=== PATIENT | female | born 1970 | race Caucasian/White ===

== ENCOUNTER → 2017-05-13 | Outpatient (CLI) | payer BC, OTHER | LOC: FCPNEURO 11:17 | PROVIDERS: ATTEND Student in an Organized Health Care Education/Training Program | DX: G47.33 Obstructive sleep apnea (adult) (pediatric) (principal) ==

== ENCOUNTER 2018-01-15 18:20 | Inpatient (IN) | payer BC, OTHER ==
[2018-01-15] MEDS ORDERED: NS 500 ML IV ONE (18:48)
--- NOTE | 2018-01-15 18:51 | CPEKG ---
Heart Rate: 92 RR Interval: 652 P-R Interval: 152 QRSD Interval: 82 QT Interval: 364 QTC Interval: 451 P [place]: 72 QRS [place]: 51 T Wave [place]: 6 EKG Severity - NORMAL ECG - EKG Impression: SINUS RHYTHM Electronically Signed By: Ld Mitchell 15-Jan-2018 18:52:45
--- NOTE | 2018-01-15 18:52 | EDPHY ---
H & P Stated Complaint: l foot surg 01/07 3-4 days of sob/tight chest/fever and hypoxia Time Seen by Provider: 01/15/18 18:36 HPI/ROS: CHIEF COMPLAINT: Cough, shortness of breath, chest tightness HISTORY OF PRESENT ILLNESS: Patient is 8 days status post a left foot surgery for bone spur removal. For the last 3 days she has had gradually increasing chest tightness, the pleuritic chest pain, low-grade fevers and shortness of breath. She also has a nonproductive cough. No bloody sputum. No diaphoresis. No nausea vomiting or diarrhea. She denies any cardiac or pulmonary history. She is taking [place] no other medications. She has not had any leg pain or swelling. REVIEW OF SYSTEMS: Constitutional: denies: chills, fever, recent illness, recent injury EENTM: denies: blurred vision, double vision, nose congestion Respiratory: See HPI Cardiac: denies: chest pain, irregular heart rate, lightheadedness, palpitations Gastrointestinal/Abdominal: denies: abdominal pain, diarrhea, nausea, vomiting, blood streaked stools Genitourinary: denies: dysuria, frequency, hematuria, pain Musculoskeletal: denies: joint pain, muscle pain Skin: denies: lesions, rash, jaundice, bruising Neurological: denies: headache, numbness, paresthesia, tingling, dizziness, weakness Hematologic/Lymphatic: denies: blood clots, easy bleeding, easy bruising Immunologic/allergic: denies: HIV/AIDS, transplant EXAM: GENERAL: Well-appearing, well-nourished and in no acute distress. HEAD: Atraumatic, normocephalic. EYES: Pupils equal round and reactive to light, extraocular movements intact, sclera anicteric, conjunctiva are normal. ENT: TMs normal, nares patent, oropharynx clear without exudates. Moist mucous membranes. NECK: Normal range of motion, supple without lymphadenopathy or JVD. LUNGS: Dry cough, Breath sounds clear to auscultation bilaterally and equal. No wheezes rales or rhonchi. HEART: Regular rate and rhythm without murmurs, rubs or gallops. ABDOMEN: Soft, nontender, normoactive bowel sounds. No guarding, no rebound. No masses appreciated. BACK: No CVA tenderness, no spinal tenderness, step-offs or deformities EXTREMITIES: Normal range of motion, no pitting or edema. No clubbing or cyanosis. NEUROLOGICAL: Cranial nerves II through XII grossly intact. Normal speech, normal gait. 5/5 strength, normal movement in all extremities, normal sensation PSYCH: Normal mood, normal affect. SKIN: Warm, dry, normal turgor, no visible rashes or lesions. Source: Patient Exam Limitations: No limitations - Personal History LMP (Females 10-55): 8-14 Days Ago Current Tetanus/Diphtheria Vaccine: Yes - Medical/Surgical History Hx Asthma: No Hx Chronic Respiratory Disease: No Hx Diabetes: No Hx Cardiac Disease: No Hx Renal Disease: No Hx Cirrhosis: No Hx Alcoholism: No Hx HIV/AIDS: No Hx Splenectomy or Spleen Trauma: No Other PMH: foot surg - Family History Significant Family History: No pertinent family hx - Social History Smoking Status: Never smoked Alcohol Use: Sober Drug Use: None Constitutional: Initial Vital Signs Temperature (C) 37.5 C 01/15/18 18:25 Heart Rate 115 H 01/15/18 18:25 Respiratory Rate 22 H 01/15/18 18:25 Blood Pressure 146/93 H 01/15/18 18:25 O2 Sat (%) 85 L 01/15/18 18:25 O2 Delivery Mode Room Air O2 (L/minute) 3 Allergies/Adverse Reactions: Penicillins Allergy (Verified 01/15/18 18:24) Home Medications: Medication Instructions Recorded Cetirizine [ZyrTEC 10 mg (*)] 10 mg PO DAILY 01/15/18 Hydrocodone/Acetaminophen [[place] 1 - 2 tab PO Q6H PRN 01/15/18 5/325 (*)] Magnesium Citrate 100 mg PO DAILY 01/15/18 Norgestimate-Ethinyl Estradiol 1 each PO DAILY 01/15/18 [Tri-Sprintec Tablet] Ondansetron Odt [Zofran Odt 4 mg 4 mg PO Q6 PRN 01/15/18 (*)] traZODone [traZODONE 50MG (*)] 25 mg PO HS 01/15/18 Medical Decision Making - Diagnostics EKG Interpretation: An EKG obtained and was read and documented in trace view. Please see trace view for full reading and report. Sinus rhythm, no acute ischemic changes Imaging Results: Imaging Impressions Chest X-Ray 01/15/18 18:48 Impression: 1. Bilateral pneumonia diffusely most prominent right upper lobe. Imaging: Discussed imaging studies w/ web content executive Radiologist ED Course/Re-evaluation: 7:15 p.m. I discussed the case with Dr. Jose Palomino who will admit. He agrees with Janel. Sepsis lab work is still pending. Patient does have SIRS. The patient understands and agrees the plan. Differential Diagnosis: Partial list of the Differential diagnosis considered include but were not limited to; pneumonia, PE and although unlikely based on the history and physical exam, I also considered pneumothorax, CHF, acute coronary disease. Critical Care Time: Critical care time spent by me, Dr. Mitchell exclusive with this patient was 35 minutes, exclusive of the PA time exclusive of procedures. The organ system that was at risk was pulmonary and I gave IV fluids, antibiotics, consultation and admission to prevent worsening of the patient's condition - Data Points Laboratory Results: Laboratory Results 01/15/18 18:37 01/15/18 18:37 01/15/18 01/15/18 01/15/18 18:37 18:37 18:37 WBC 17.40 10^3/uL H 10^3/uL (3.80-9.50) RBC 4.00 10^6/uL L 10^6/uL (4.18-5.33) Hgb 14.1 g/dL g/dL (12.6-16.3) Hct 40.5 % % (38.0-47.0) MCV 101.3 fL H fL (81.5-99.8) MCH 35.3 pg H pg (27.9-34.1) MCHC 34.8 g/dL g/dL (32.4-36.7) RDW 11.6 % % (11.5-15.2) Plt Count 321 10^3/uL 10^3/uL (150-400) MPV 10.9 fL fL (8.7-11.7) Neut % (Auto) 78.6 % H % (39.3-74.2) Lymph % (Auto) 10.3 % L % (15.0-45.0) Real % (Auto) 9.3 % % (4.5-13.0) Eos % (Auto) 0.7 % % (0.6-7.6) Baso % (Auto) 0.5 % % (0.3-1.7) Nucleat RBC Rel Count 0.0 % % (0.0-0.2) Absolute Neuts (auto) 13.67 10^3/uL H 10^3/uL (1.70-6.50) Absolute Lymphs (auto) 1.79 10^3/uL 10^3/uL (1.00-3.00) Absolute Monos (auto) 1.61 10^3/uL H 10^3/uL (0.30-0.80) Absolute Eos (auto) 0.13 10^3/uL 10^3/uL (0.03-0.40) Absolute Basos (auto) 0.09 10^3/uL 10^3/uL (0.02-0.10) Absolute Nucleated RBC 0.00 10^3/uL 10^3/uL (0-0.01) Immature Gran % 0.6 % % (0.0-1.1) Immature Gran # 0.11 10^3/uL H 10^3/uL (0.00-0.10) PT 13.5 SEC SEC (12.0-15.0) INR 1.01 (0.83-1.16) APTT 25.8 SEC SEC (23.0-38.0) Sodium 133 mEq/L L mEq/L (135-145) Potassium 4.2 mEq/L mEq/L (3.5-5.2) Chloride 97 mEq/L mEq/L (97-110) Carbon Dioxide 21 mEq/l L mEq/l (22-31) Anion Gap 15 mEq/L mEq/L (8-16) BUN 8 mg/dL mg/dL (7-23) Creatinine 0.7 mg/dL mg/dL (0.6-1.0) Estimated GFR > 60 Glucose 98 mg/dL mg/dL (70-100) Calcium 9.2 mg/dL mg/dL (8.5-10.4) Total Bilirubin 0.3 mg/dL mg/dL (0.1-1.4) Conjugated Bilirubin 0.3 mg/dL mg/dL (0.0-0.5) Unconjugated Bilirubin 0.0 mg/dL mg/dL (0.0-1.1) AST 24 IU/L IU/L (14-46) ALT 27 IU/L IU/L (9-52) Alkaline Phosphatase 96 IU/L IU/L (38-126) Troponin I < 0.012 ng/mL ng/mL (0.000-0.034) Total Protein 7.4 g/dL g/dL (6.3-8.2) Albumin 4.0 g/dL g/dL (3.5-5.0) Medications Given: Discontinued Medications Sodium Chloride (Ns) 500 mls @ 1,000 mls/hr IV EDNOW ONE PRN Reason: Protocol Stop: 01/15/18 19:17 Last Admin: 01/15/18 20:10 Dose: Not Given Levofloxacin/Dextrose (Levaquin 750 Mg (Premix)) 150 mls @ 100 mls/hr IV EDNOW ONE PRN Reason: Protocol Stop: 01/15/18 20:41 Last Admin: 01/15/18 20:35 Dose: 150 mls Sodium Chloride (Ns) 1,900 mls @ 3,800 mls/hr 30 ml/kg infuse over 30 min ( 1900 ml) IV EDNOW ONE PRN Reason: Protocol Stop: 01/15/18 19:41 Last Admin: 01/15/18 19:45 Dose: 1,900 mls Departure - Departure Disposition: [facility] Inpatient Acute Clinical Impression: Pneumonia Qualifiers: Pneumonia type: due to unspecified organism Laterality: bilateral Lung location : unspecified part of lung Qualified Code(s): J18.9 - Pneumonia, unspecified organism Sepsis Qualifiers: Sepsis type: sepsis due to unspecified organism Qualified Code(s): A41.9 - Sepsis, unspecified organism Condition: Fair
[2018-01-15 18:53] LABS: PLATELET COUNT 321 10^3/uL (150-400)
[2018-01-15 19:02] LABS: INR 1.01 (0.83-1.16); PROTIME(PATIENT) 13.5 SEC (12.0-15.0)
[2018-01-15] MEDS ORDERED: NS 1,900 ML IV ONE (19:12)
[2018-01-15] MEDS ORDERED: ONDANSETRON DISINTEGRATING 4 MG TAB PO PRN (19:37)
[2018-01-15] MEDS ORDERED: ONDANSETRON 4 MG/2 ML VIAL IVP PRN (19:37)
[2018-01-15] MEDS ORDERED: oxyCODONE IR 5 MG TAB PO PRN (19:37)
[2018-01-15] MEDS ORDERED: NS 1,000 ML IV SCH (19:45)
[2018-01-15] MEDS ORDERED: ALBUTEROL 3 ML DEYVIAL IH PRN (19:49)
--- NOTE | 2018-01-15 21:52 | GHP ---
[f rep st] HISTORY AND PHYSICAL DATE OF ADMISSION: 01/15/2018 HISTORY OF PRESENT ILLNESS: The patient is a pleasant 47-year-old female with minimal past medical h istory. She had a bone spur resection at [facility] a week and a day ago. About 2 days ago , she began feeling ill with cough, wheezing, a little bit of nausea. No diarrhea, no vomiting. She did get a flu shot this year. She lives alone. 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 She has had some fevers at night as high as 102. She has been short of breath today and so she ultim ately sought care. She is a nonsmoker, has no known lung disease. REVIEW OF SYSTEMS: Complete 10-point review of systems conducted and negative except as noted in the HPI. PAST MEDICAL HISTORY: Bone spurs. ALLERGIES: Penicillin to which she gets a rash. MEDICATIONS: At home: [place] and Zofran she has been taking since her surgery. SOCIAL HISTORY: She drinks alcohol with regularity. No tobacco. FAMILY HISTORY: Reviewed and unremarkable. PHYSICAL EXAMINATION: VITAL SIGNS: Temperature 37.5, blood pressure 146/93, pulse 115, breathing at 22 times a minute, 85% on room air; 96 on 3 L. GENERAL: No acute distress. HEENT: Sclerae anicte shaw. Oropharynx clear. Mucous membranes moist. NECK: Supple without lymphadenopathy or JVD. LUNG S: Rhonchorous bilaterally with crackles, but no wheezes. HEART: S1, S2. Borderline tachycardic, but not 115. ABDOMEN: Soft. There is no rebound or guarding. LOWER EXTREMITIES: Without edema. Calves are nontender. SKIN: Without rash. Her incisional site is clean, dry and intact without mayte thema or warmth. LABORATORY DATA: Sodium 133, potassium 4.2, chloride 97, bicarb 21, BUN 8, creatinine 0.7. LFTs nor mal. Lipase normal. Troponin less than 0.012. Coags normal. White count is 17 with a left shift. Hematocrit is 40.5, MCV is 101, platelets are 321. EKG, interpreted by me, shows sinus at 92 with n ormal axis and intervals and no ST or T-wave changes. Chest x-ray, interpreted by me, shows bilatera l airspace disease most pronounced in the right upper lobe. There is no effusion. I discussed the c ase with Dr. Ld Mitchell. ASSESSMENT AND PLAN: This is a 47-year-old female who presents with pneumonia in the context of rece nt surgery. 1. Pneumonia. I believe this to be a community-acquired pneumonia given its bilateral nature, certa inly influenza needs to be considered. We sent off a swab. She was started on levofloxacin, which I think is a reasonable choice. I do not suspect aspiration. 2. Acute hypoxemic respiratory failure. This is attributable to her pneumonia and we will provide s upplemental oxygen. We will give her some p.r.n. nebulizers. 3. Recent foot surgery. We will continue her pain medicine. This is not the source of infection or fever. 4. Prophylaxis. Pharmacologic prophylaxis indicated. We will start Lovenox. DISPOSITION: Inpatient status. I anticipate greater than 2 midnights needed given her hypoxemia. /[id number]/MODL
[2018-01-15] MEDS: TEMAZEPAM 15 MG CAP PO PRN (22:43)
[2018-01-15] MEDS: ACETAMINOPHEN 325 MG TAB PO PRN (23:48)
[2018-01-16 06:12] LABS: PLATELET COUNT 253 10^3/uL (150-400)
[2018-01-16] MEDS: CETIRIZINE 10 MG TAB PO SCH (09:08)
[2018-01-16] MEDS: ACETAMINOPHEN 325 MG TAB PO PRN ×3 (09:08→23:50)
[2018-01-16] MEDS: NORGESTIMATE ETHINYL ESTRADIOL PO SCH (09:09)
[2018-01-16] MEDS: MAGNESIUM CITRATE 100 MG PO SCH (09:09)
[2018-01-16] MEDS: ENOXAPARIN 40 MG/0.4 ML SYR SC SCH (09:10)
--- NOTE | 2018-01-16 10:08 | HOSPPROG ---
Hospitalist Progress Note Assessment/Plan: 47y female with c/o SOB. First encounter, chart reviewed. #CAP responding well to abx feels better still SOB #AHRF cont supportive care nebs start mucinex #Recent foot surgery stable #Dispo likely 1-2 days when conts to improve Subjective: Feeling better. Still needing oxygen. Still sob. Objective: Vital Signs Temp Pulse Resp BP Pulse Ox 37.7 C 91 20 118/80 88 L 01/16/18 08:00 01/16/18 08:00 01/16/18 08:00 01/16/18 08:00 01/16/18 08:00 Microbiology 01/15/18 19:30 Respiratory Panel (PCR) - Final Nasal, Sinus - Swab No Organism Detected Laboratory Results 01/16/18 05:13 01/16/18 05:13 01/15/18 01/16/18 01/17/18 05:59 05:59 05:59 Intake Total 3200 350 Balance 3200 350 PT 13.5 SEC (12.0-15.0) 01/15/18 18:37 INR 1.01 (0.83-1.16) 01/15/18 18:37 - Physical Exam Constitutional: no apparent distress, appears nourished, not in pain Eyes: PERRL, anicteric sclera, EOMI Ears, Nose, Mouth, Throat: moist mucous membranes, hearing normal, ears appear normal Cardiovascular: No JVD, No tachycardia, No edema Respiratory: no respiratory distress, no rales or rhonchi, reduced air movement Gastrointestinal: normoactive bowel sounds, No tenderness, No ascites Skin: warm, normal color, No mottled Musculoskeletal: normal joint ROM, no joint effusions, generalized weakness Neurologic: AAOx3 Psychiatric: interacting appropriately, not anxious, not encephalopathic, thought process linear ICD10 Worksheet Patient Problems: Problems Problem Status Onset Pneumonia Acute Sepsis Acute
--- NOTE | 2018-01-16 11:09 | PDMN ---
Medical Necessity Medical necessity: Patient meets inpatient criteria per physician note and [facility] Pneumonia, Community Acquired - (recent surgery at [facility]; new onset cough, wheezing, nausea 2 days prior to admission; acute hypoxemic respiratory failure/RA sat 85%; CXR shows bilateral pneumonia, worse RUL; leukocytosis/WBC > 17,000; anticipated LOS > 2 midnights for ongoing IV antibiotics, new supplemental O2 needs.)
--- NOTE | 2018-01-16 11:39 | ASMTCMCOM ---
CM Note CM Note Notes: Chart reviewed. Patient 47 year old female with pneumonia. No current needs identified. CM available should needs arise. Date Signed: 01/16/2018 11:38 AM Electronically Signed By:Chrissy Delaney RN
[2018-01-16] MEDS: guaiFENesin 600 MG TAB.ER PO SCH ×2 (11:58→20:47)
--- NOTE | 2018-01-16 12:13 | SOAPPROG ---
SOAP Progress Note Assessment/Plan: Assessment: s/p L cartiva procedure admitted with pnuemonia Plan: L foot doing well no drainage or signs of infection ROM as tolerarted wbat as tolerated may shower no wound care needed any shoe wear is permissible f/u with me in 5 weeks 01/16/18 12:11 Subjective: some pain in toe Objective: Vital Signs Temp Pulse Resp BP Pulse Ox 37.0 C 90 20 140/85 H 90 L 01/16/18 11:10 01/16/18 11:10 01/16/18 11:10 01/16/18 11:10 01/16/18 11:10 Microbiology 01/15/18 19:30 Respiratory Panel (PCR) - Final Nasal, Sinus - Swab No Organism Detected Laboratory Results 01/16/18 05:13 01/16/18 05:13 01/15/18 01/16/18 01/17/18 05:59 05:59 05:59 Intake Total 3200 350 Balance 3200 350 PT 13.5 SEC (12.0-15.0) 01/15/18 18:37 INR 1.01 (0.83-1.16) 01/15/18 18:37 no erythema r drainage minimal swelling ICD10 Worksheet Patient Problems: Problems Problem Status Onset Pneumonia Acute Sepsis Acute
[2018-01-16] MEDS: TEMAZEPAM 15 MG CAP PO PRN (21:57)
[2018-01-17 07:30] VITALS: BP 126/70; PULSE 79; RESP 14; TEMP 98.5
[2018-01-17] MEDS: MAGNESIUM CITRATE 100 MG PO SCH (08:14)
[2018-01-17] MEDS: NORGESTIMATE ETHINYL ESTRADIOL PO SCH (08:14)
[2018-01-17 09:43] VITALS: O2SAT 86
[2018-01-17] MEDS: CETIRIZINE 10 MG TAB PO SCH (09:53)
[2018-01-17] MEDS: guaiFENesin 600 MG TAB.ER PO SCH (09:53)
[2018-01-17] MEDS: ENOXAPARIN 40 MG/0.4 ML SYR SC SCH (09:54)
--- NOTE | 2018-01-17 12:43 | ASMTLACE ---
MARY ANN Length of stay for Answers: 2 days current admission Acuity / Level of Answers: Yes Care: Did the patient have an inpatient admission? # of Emergency department Answers: 1-2 visits in the last 6 months Score: 6 Date Signed: 01/17/2018 12:42 PM Electronically Signed By:Naila Collins RN
--- NOTE | 2018-01-17 12:49 | ASDISCHSUM ---
Discharge Information Plan Status:Home with No Needs Medically Cleared to Leave:01/16/2018 Discharge Date:01/17/2018 11:47 AM CM D/C Disposition:Home, Routine, Self-Care ADT D/C Disposition:Home, Routine, Self-Care Projected Discharge Date:01/17/2018 11:47 AM Transportation at D/C:Friend Discharge Delay Reason: Follow-Up Date:01/17/2018 11:47 AM Discharge Slot:1 - 8:01 am - 12:00 noon Final Diagnosis:Community acquired PNA, acute hypoxic respiratory failure Placement Information Patient Contact Information Contact Name:JASS Relationship:Father Address: Work Phone: City:[place] Alternate Phone: State/Zip Code:[place] Email: Financial Information Financial Class:[employer] Primary Plan Desc:[employer] Primary Plan Number:[id number] Secondary Plan Desc: Secondary Plan Number: Assessment Information LACE LACE Length of stay for Answers: 2 days current admission Acuity / Level of Answers: Yes Care: Did the patient have an inpatient admission? # of Emergency department Answers: 1-2 visits in the last 6 months Score: 6 Date Signed: 01/17/2018 12:42 PM Electronically Signed By:Naila Collins RN [facility] CM Progress Note CM Note CM Note Notes: Chart reviewed. Patient 47 year old female with pneumonia. No current needs identified. CM available should needs arise. Date Signed: 01/16/2018 11:38 AM Electronically Signed By:Chrissy Delaney RN Case Management Discharge Plan Note Case Management Discharge Discharge Order Complete? Answers: Yes Patient to Obtain Answers: Independently Medications Transportation Arranged Answers: Family/Friends EMTALA Complete Answers: No Notes: N/A Case Management Transport Answers: No Notes: N/A Form Complete Faxed Final Orders Answers: No Notes: N/A Agency/Facility Transfer Answers: No Notes: N/A Report Printed & Faxed to Receiving Agency Family Notified Answers: No Notes: Pt to notify, if applicable Discharge Comments Notes: Reviewed chart regarding discharge plan, pt's progress. Spoke w/ Priscilla Mejia, DIRECTOR OF EMERGENCY NURSING, pt to discharge home independently today w/ no identified needs. Spoke w/ Lizette, PT, pt cleared for discharge. No IM signed, not applicable. Pt to follow up as directed. CM available for any further issues or concerns. Discharge Plan: Home independently Date Signed: 01/17/2018 12:47 PM Electronically Signed By:Naila Collins RN Intervention Information
--- NOTE | 2018-01-17 14:29 | GDS ---
[f rep st] DISCHARGE SUMMARY DISCHARGE DIAGNOSIS: Community-acquired pneumonia. PHYSICAL EXAM: GENERAL: The patient is alert. VITAL SIGNS: Afebrile at 36.9, pulse is 79, respira tory rate 14, blood pressure is 126/70. She is saturating greater than 90% on room air. I have seen and evaluated the patient on the day of discharge. HOSPITAL COURSE: The patient is a 47-year-old female, recently had a foot surgery. She presented to the emergency room with complaints of shortness of breath. She has been evaluated and admitted, sung gnosed with community-acquired pneumonia. During this hospitalization, she was treated with antibiot ic therapy. She is responding well to this. She had acute hypoxemic respiratory failure which has r esolved. The patient is saturating greater than 90% on room air. She is eager to be discharged home and will follow up in the outpatient setting with Dr. Butts, as well as her primary care physician. DISCHARGE MEDICATIONS: Please refer to EMR form. Prescriptions have been provided for the patient f or Levaquin 750 mg daily, #5. I have spent greater than 35 minutes in the care, coordination, and management of the patient's dispo sition. /[id number]/MODL
== END 2018-01-17 11:47 | disposition home or self-care (01) | DRG 193 ==
LOC: F3E 20:55
PROVIDERS: ADMIT Internal Medicine; ATTEND Hospitalist
DX: J18.9 Pneumonia, unspecified organism (principal); J96.01 Acute respiratory failure with hypoxia; Z98.890 Other specified postprocedural states
CPT/HCPCS: 97161-GP; J1650; J1956; J7613

== ENCOUNTER 2018-01-18 19:35 | Emergency (ER) | payer OTHER ==
[2018-01-18 19:41] VITALS: TEMP 98.8
--- NOTE | 2018-01-18 20:20 | EDPHY ---
H & P Stated Complaint: Dx w/pnuemonia 01/17, SOB, generalized weakness Time Seen by Provider: 01/18/18 20:20 HPI/ROS: CHIEF COMPLAINT: Increasing dyspnea HISTORY OF PRESENT ILLNESS: The patient presents the ED with increasing dyspnea. The patient has a history of pneumonia. She was hospitalized on January 15. She was discharged home on oral Levaquin. She was not hypoxemic at discharge. The patient returns to the emergency department tonight with complaints of increasing dyspnea and generalized malaise. She has been compliant with her antibiotics. The patient currently has a injury to her left foot and is scheduled to see Dr. Butts from Orthopedic surgery. The patient denies any abdominal pain or vomiting. The patient does feel better after receiving supplemental oxygen in the emergency department. REVIEW OF SYSTEMS: A comprehensive 10 point review of systems is otherwise negative aside from elements mentioned in the history of present illness. Source: Patient Exam Limitations: No limitations - Personal History LMP (Females 10-55): 8-14 Days Ago Current Tetanus Diphtheria and Acellular Pertussis (TDAP): Yes - Medical/Surgical History Hx Asthma: No Hx Chronic Respiratory Disease: No Hx Diabetes: No Hx Cardiac Disease: No Hx Renal Disease: No Hx Cirrhosis: No Hx Alcoholism: No Hx HIV/AIDS: No Hx Splenectomy or Spleen Trauma: No Other PMH: foot surg - Social History Smoking Status: Never smoked - Physical Exam Exam: General Appearance: Alert, no distress Eyes: Pupils equal and round no pallor or injection ENT, Mouth: Mucous membranes moist Respiratory: Decreased breath sounds bilaterally Cardiovascular: Tachycardic Gastrointestinal: Abdomen is soft and nontender, no masses, bowel sounds normal Neurological: A&O, normal motor function, normal sensory exam, normal cranial nerves Skin: Warm and dry, no rashes Musculoskeletal: Neck is supple nontender Extremities: symmetrical, full range of motion Constitutional: Initial Vital Signs Temperature (C) 37.1 C 01/18/18 19:39 Heart Rate 126 H 01/18/18 19:39 Respiratory Rate 20 01/18/18 19:39 Blood Pressure 142/85 H 01/18/18 19:39 O2 Sat (%) 94 01/18/18 19:39 O2 Delivery Mode Room Air O2 (L/minute) 2 Allergies/Adverse Reactions: Penicillins Allergy (Verified 01/18/18 19:38) Home Medications: Medication Instructions Recorded Cetirizine [ZyrTEC 10 mg (*)] 10 mg PO DAILY 01/15/18 Hydrocodone/Acetaminophen [[place] 1 - 2 tab PO Q6H PRN 01/15/18 5/325 (*)] Magnesium Citrate 100 mg PO DAILY 01/15/18 Norgestimate-Ethinyl Estradiol 1 each PO DAILY 01/15/18 [Tri-Sprintec Tablet] Ondansetron Odt [Zofran Odt 4 mg 4 mg PO Q6 PRN 01/15/18 (*)] traZODone [traZODONE 50MG (*)] 25 mg PO HS 01/15/18 Acetaminophen [Tylenol 325mg (*)] 650 mg PO Q4HRS PRN tab 01/17/18 guaiFENesin [Mucinex 600 MG (*)] 1,200 mg PO BID tab.er 01/17/18 levOFLOXACIN [levAQUIN (*)] 750 mg PO DAILY #5 tab 01/17/18 Medical Decision Making ED Course/Re-evaluation: The patient presents to the ED for recheck of her pneumonia. The patient is not hypoxemic. This was checked several times. She is ambulatory with an O2 sat of 93-95%. The patient's chest x-ray demonstrates no evidence of a progressively worsening pneumonia. She did receive a DuoNeb in the emergency department. The patient was offered admission to the hospital but she prefers to go home. Her tachycardia has resolved. The patient does have an albuterol inhaler at home and she has been instructed to use that up to every 2-4 hours as needed in addition to taking her Levaquin as prescribed. The patient does understand return to the ED for any acutely worsening dyspnea or other concerns. Differential Diagnosis: Differential diagnosis considered includes dehydration, worsening pneumonia, hypoxemic respiratory failure Departure - Departure Disposition: Home, Routine, Self-Care Clinical Impression: Pneumonia Condition: Good Instructions: Bacterial Pneumonia (ED) Additional Instructions: 1. Please continue your antibiotics as prescribed. 2. Return to the ED for markedly worsening shortness of breath, worsening symptoms or other concerns. 3. Please use your inhaler up to every 2-4 hours as needed.
[2018-01-18] MEDS ORDERED: IPRATROPIUM/ALBUTEROL 3 ML DEYVIAL IH ONE (21:07)
[2018-01-18 21:33] VITALS: BP 120/66; PULSE 92; RESP 18; O2SAT 93
== END 2018-01-18 21:33 | disposition home or self-care (01) ==
DX: J18.9 Pneumonia, unspecified organism (principal)

== ENCOUNTER 2018-02-25 19:11 | Emergency (ER) | payer BC, OTHER ==
--- NOTE | 2018-02-25 20:03 | EDPHY ---
H & P Time Seen by Provider: 02/25/18 19:27 HPI/ROS: CHIEF COMPLAINT: Shortness of breath, sinusitis HISTORY OF PRESENT ILLNESS: 47-year-old female presents with shortness of breath and sinusitis. She was admitted for pneumonia in December 2017. Since then, she continues to have a dry cough. Recently she has felt short of breath and feels a tingling sensation over her left cheek. She thinks that she may have sinusitis. However most concerning is that she continues to feel short of breath after her episode of pneumonia. Seen by PCP 2 days ago; CXR reportedly normal. No history of asthma or other pulmonary disease. REVIEW OF SYSTEMS: Constitutional: No fever, no chills Eyes: No visual changes ENT: No sore throat Cardiac: No chest pain Gastrointestinal: No nausea, no vomiting, no abdominal pain Genitourinary: no dysuria Musculoskeletal: No leg pain or swelling Skin: No rash Neurological: No headache, no numbness, no weakness Psychiatric: No depression Past Medical/Surgical History: Pneumonia Social History: no recent alcohol Smoking Status: Never smoked Physical Exam: General Appearance: Alert, pleasant Eyes: Pupils equal and round, no conjunctival pallor or injection ENT, Mouth: Mucous membranes moist, no tenderness over the sinuses Neck: Normal inspection Respiratory: Normal respiratory rate, Lungs are clear to auscultation, no wheezing Cardiovascular: Regular rate and rhythm Gastrointestinal: Abdomen is soft and nontender Neurological: A&O, nonfocal, normal gait Skin: Warm and dry, no rash Extremities: Normal inspection Psychiatric: Mood and affect normal Constitutional: Initial Vital Signs Temperature (C) 36.8 C 02/25/18 19:16 Heart Rate 110 H 02/25/18 19:16 Respiratory Rate 20 02/25/18 19:16 Blood Pressure 92/76 L 02/25/18 19:16 O2 Sat (%) 93 02/25/18 19:16 O2 Delivery Mode Room Air Allergies/Adverse Reactions: Penicillins Allergy (Verified 01/18/18 19:38) Home Medications: Medication Instructions Recorded Cetirizine [ZyrTEC 10 mg (*)] 10 mg PO DAILY 01/15/18 Hydrocodone/Acetaminophen [[place] 1 - 2 tab PO Q6H PRN 01/15/18 5/325 (*)] Magnesium Citrate 100 mg PO DAILY 01/15/18 Norgestimate-Ethinyl Estradiol 1 each PO DAILY 01/15/18 [Tri-Sprintec Tablet] Ondansetron Odt [Zofran Odt 4 mg 4 mg PO Q6 PRN 01/15/18 (*)] traZODone [traZODONE 50MG (*)] 25 mg PO HS 01/15/18 Acetaminophen [Tylenol 325mg (*)] 650 mg PO Q4HRS PRN tab 01/17/18 guaiFENesin [Mucinex 600 MG (*)] 1,200 mg PO BID tab.er 01/17/18 levOFLOXACIN [levAQUIN (*)] 750 mg PO DAILY #5 tab 01/17/18 Azithromycin [Zithromax] 250 mg PO DAILY #6 tab 02/25/18 Medical Decision Making ED Course/Re-evaluation: This pt presents with persistent SOB and new cough after recent dx of pneumonia. Vital signs are normal, including oxygen saturation. Oxygen saturation remained 92% on room air while ambulating throughout the emergency department. Unclear etiology of persistent SOB. Pt will f/u with digital marketing associate for PFTs/further eval. Given new cough, will place pt on Zpak. No evidence of sinusitis; no sinus drainage/tenderness and no fever. Differential Diagnosis: includes though not limited to recurrent pneumonia, pulm edema, empyema, hypoxia Departure - Departure Disposition: Home, Routine, Self-Care Clinical Impression: Acute bronchitis Qualifiers: Bronchitis organism: unspecified organism Qualified Code(s): J20.9 - Acute bronchitis, unspecified Dyspnea Qualifiers: Dyspnea type: shortness of breath Qualified Code(s): R06.02 - Shortness of breath; R06.00 - Dyspnea, unspecified; R06.01 - Orthopnea Condition: Good Instructions: Acute Bronchitis (ED), Dyspnea (ED) Additional Instructions: Return for worsening symptoms, any concerns. Referrals: Elan Holland MD [Medical Doctor] - As per Instructions (Call to make an appointment.) Prescriptions: Azithromycin [Zithromax] 250 mg PO DAILY #6 tab
[2018-02-25 20:15] VITALS: BP 117/90; PULSE 80; RESP 14; TEMP 97.9; O2SAT 96
== END 2018-02-25 20:15 | disposition home or self-care (01) ==
DX: J20.9 Acute bronchitis, unspecified (principal)